=== PATIENT | male | born 2005 | race Caucasian/White ===

== ENCOUNTER 2025-09-24 13:42 | Emergency (ER) | payer SELFPAY ==
[~2025-09-24] VITALS: Ht 142.2 cm; Wt 79.5 kg
[~2025-09-24 13:42] MED LIST: ADVIL LIQUI-GE200 MG PO; CLONIDINE HCL0.1 MG PO; STRATTERA40 MG PO
[2025-09-24 14:00] LABS: BASOPHILS 0.6 % (0.2-1.2); EOSINOPHILS 0.6 % (0.8-7.0); LYMPHOCYTES 33.6 % (21.8-53.1); MCH 31.2 PG (25.7-32.2); MCHC 33.7 g/dL (32.3-36.5); MCV 92.6 fL (79.0-92.2); MONOCYTES 6.7 % (5.3-12.2); NEUTROPHILS 58.3 % (34.0-67.9); RBC 4.97 M/uL (4.63-6.08)
[2025-09-24 14:24] LABS: ALT (SGPT) 22.0 U/L (14-59); AST (SGOT) 16.0 U/L (15-37); GLOMERULAR FILTRATION RATE,EST 119.0 mL/min (>60); PROTEIN, TOTAL 7.9 g/dL (6.4-8.2); UREA NITROGEN 14.0 mg/dL (7-18)
[2025-09-24 15:20] VITALS: BP 132/77
--- NOTE | 2025-09-26 22:13 | EKG ---
[facility] [address] [place] [address] Signed Sinus bradycardia Nonspecific ST and T wave abnormality Abnormal ECG No previous ECGs available Confirmed by Annie Yañez MD () on 09/26/2025 10:13:42 PM Electronically Signed By: ANNIE YAÑEZ MD 09/26/25 221 PATIENT NAME: ANNIE AWAD Electrocardiogram DATE OF : [birth year] PHYSICIAN: ANNIE YAÑEZ MD REPORT #: [id number] REPORT IS CONFIDENTIAL AND NOT TO BE RELEASED WITHOUT AUTHORIZATION
== END 2025-09-24 15:18 | disposition home or self-care (01) ==
LOC: ED 13:42
PROVIDERS: Emergency Medicine
DX: R07.89 Other chest pain (principal); R55 Syncope and collapse
CPT/HCPCS: 36415; 71045; 80053; 84443; 84484; 85025; 93005; 93010; 99285-25